=== PATIENT | male | born 1980 | race Caucasian/White ===

== ENCOUNTER → 2020-09-28 15:02 | Outpatient (CLI) | payer OTHER ==
--- NOTE | 2020-09-28 15:37 | NUR ---
TIMEOUT PERFORMED AT 1530 USING NAME AND . PCN ALLERGY
== END | disposition home or self-care (01) ==
LOC: D.RAD 14:30
PROVIDERS: ATTEND Nurse Practitioner Family
DX: S43.431A Superior glenoid labrum lesion of right shoulder, initial encounter (principal)

== ENCOUNTER 2020-11-27 05:21 | Day surgery (SDC) | payer OTHER ==
[~2020-11-27] VITALS: Ht 175.3 cm; Wt 86.2 kg
[~2020-11-27 05:21] MED LIST: HYDROCHLOROTH12.5 M1 PO; HYDROXYZINE HCL10 MG PO; KENALOG-4040 MG/ML IM; NORVASC10 MG PO; VITAMIN D21250 MC1 PO; ZOLOFT50 MG PO
[2020-11-27 05:56] LABS: BASOPHILS 1.3 % (0-2); HEMOGLOBIN 14.3 g/dL (13.5-17.5); MCH 30.4 pg (26.0-34.0); MCV 89.5 fL (80.0-100.0); MEAN PLATELET VOLUME 9.2 fL (7.4-10.4); MONOCYTES 8.3 % (2-11); NEUTROPHILS 41.4 % (40-80); PLATELET COUNT 319 10x3/uL (130-400); RBC 4.69 10x6/uL (4.20-6.10); WBC 9.2 10x3/uL (4.8-10.8)
[2020-11-27 06:10] LABS: CALC OSMOLALITY 277 mosm/kg (275-300); CARBON DIOXIDE 29.5 mmol/L (21.0-32.0); CHLORIDE - SERUM 100 mmol/L (98-107); CREATININE - SERUM 1.1 mg/dL (0.6-1.3); GLUCOSE 117 mg/dL (74-106); POTASSIUM - SERUM 3.5 mmol/L (3.5-5.1); SODIUM 138 mmol/L (136-145); UREA NITROGEN 14 mg/dL (7-18); eGFR NON AFRICAN AMERICAN 79 mL/min (90-120)
[2020-11-27 06:26] VITALS: BP 128/75; Ht 175.3 cm; Wt 86.2 kg
--- NOTE | 2020-11-27 11:37 | NUR ---
1030 - DISCHARGE INSTRUCTIONS GIVEN TO PATIENT AND HIS SPOUSE. IV D/C'D WITH TIP INTACT. SLING AND ICE TO RIGHT ARM.
--- NOTE | 2020-11-27 19:22 | OP ---
PATIENT NAME: JACIEL QUESADA MEDICAL RECORD: [id number] :80 LOCATION:[facility] ADMISSION DATE: SURGEON: JUSTO LAZARO DO DATE OF OPERATION: 11/27/2020 PROCEDURE PERFORMED: Right endoscopic carpal tunnel release and right shoulder arthroscopy with biceps tenodesis, subacromial decompression, distal clavicle excision and rotator cuff debridement. PREOPERATIVE DIAGNOSES: Right wrist carpal tunnel syndrome, right shoulder superior labrum anterior and posterior tear, partial thickness subscapularis tendon tear and acromioclavicular joint osteoarthritis and subacromial impingement. POSTOPERATIVE DIAGNOSES: Right wrist carpal tunnel syndrome, right shoulder superior labrum anterior and posterior tear, partial thickness subscapularis tendon tear and acromioclavicular joint osteoarthritis and subacromial impingement. INDICATIONS: Mr. Quesada is a 40-year-old male who has had right carpal tunnel syndrome and shoulder problems for quite some time. He had nerve conduction studies showing carpal tunnel syndrome and also the shoulder superior labrum anterior and posterior tear, osteoarthritis of the acromioclavicular joint and partial thickness of the subscapularis tendon, less than 50%. I informed him of the risks and benefits including infection, bleeding, recurrence, damage to nerves or vessels, need for further surgery, continued pain, loss of motion of the shoulder and he signed the consent. SURGEON: Justo Lazaro DO DESCRIPTION OF PROCEDURE: The patient was taken to the operative suite, laid in supine position, given general anesthetic and LMA was placed. He was laid in the left lateral decubitus position with the right shoulder up. I then put a sterile tourniquet on. The right arm was prepped and draped in sterile fashion. A timeout had been performed. Everyone was in agreeance with the correct side, site, patient and procedure. I then exsanguinated the right upper extremity with an Esmarch, tourniquet was inflated to 250 mmHg, it was up for 7 minutes. I then made an incision centered over the palmaris longus tendon. Made blunt dissection down with long head of the tendon to the median nerve, cleaned the fascia off of the incision site from distal to proximal. I then went to the carpal tunnel itself under the transverse carpal ligament with the dilators and the sheath. I put the sheath in and then the camera in and brought a probe and rasp in, and the blade and then transected the transverse carpal ligament. Fat then herniated down into the site. I then removed all the instruments and used a pickup end of scissors long end of the tendon to ensure there were no remaining fibers of transverse carpal ligament and it was not. I then closed the site with a 5-0 Monocryl in an inverted interrupted fashion and placed on Steri-Strip, Adaptic, 4 x 4s, cast padding, and Coban lightly wrapped. I then put him in a shoulder boom. I then injected the shoulder with 60 mL of normal saline through the posterior portal with 18-gauge spinal needle and established a posterior portal with a 11-blade scalpel. Trocar was then entered into the joint. I then established an anterior portal with 18-gauge spinal needle and 11-blade scalpel. Trocar was then entered in. I then saw the SLAP tear and he also had a Huang complex. I brought the burner in and long head of biceps tendon tenotomy at that time and also debrided the subscapularis tendon, it was OPERATIVE REPORT [id number] JACIEL QUESADA partially torn at the superior fibers. I then inspected the rest of the joint and there were no loose bodies seen in it and the cartilage was in good repair. There was no tear in the supraspinatus or infraspinatus. I then went to the subacromial space, established a lateral portal an 18-gauge spinal needle and 11-blade scalpel, brought the trocar in and then did a subacromial decompression, acromioplasty into the anterior portal and I removed the distal clavicle, opened up the AC joint approximately 7-mm. I then did not see any bursal-sided tears of the rotator cuff either. I then removed the instruments and went to the anterior humerus, made a small incision and made careful dissection down to the long head of the biceps tendon, removed it and put unicortical hole in the humerus and put the 2.9 JuggerLoc biceps tenodesis anchor in and then put the tendon through the loop, cinched it down to the humerus, cut the excess suture, went back through the tendon twice, tied it down, removed the excess tendon and suture. I then irrigated and Jeanmarie Perrin, certified ophthalmic technician closed the open site with 2-0 Vicryl inverted interrupted fashion, 4-0 Monocryl ran on the skin, 4-0 Monocryl in inverted interrupted fashion on all the portal sites. He was then dressed with Dermabond, Telfa and Tegaderm, awakened, put in a sling, taken to recovery in stable condition. ESTIMATED BLOOD LOSS: Minimal. COMPLICATIONS: None. TRANSINT:[id number] Voice Confirmation ID: [id number] DOCUMENT ID: [id number] JUSTO LAZARO DO at 1922 CC: [id number] DICTATION DATE: 11/27/20 1303 RECYCLING SORTER: 11/27/20 1608 [facility] 11/27/20 [id number] [place] [address]
== END 2020-11-27 11:00 | disposition home or self-care (01) ==
LOC: D.OPS 05:21
PROVIDERS: Anesthesiology; ATTEND Orthopaedic Surgery
DX: G56.01 Carpal tunnel syndrome, right upper limb (principal); S43.431A Superior glenoid labrum lesion of right shoulder, initial encounter; M13.811 Other specified arthritis, right shoulder; M75.41 Impingement syndrome of right shoulder; S46.111A Strain of muscle, fascia and tendon of long head of biceps, right arm, initial encounter; X58.XXXA Exposure to other specified factors, initial encounter; M25.511 Pain in right shoulder; M25.531 Pain in right wrist